=== PATIENT | female | born 1955 | race Caucasian/White ===

== ENCOUNTER 2018-08-25 08:36 | Emergency (ER) | payer OTHER ==
[2018-08-25 09:01] LABS: URINE BLOOD (Dip) POC 1+ (NEGATIVE); URINE GLUCOSE (Dip) POC Negative (NEGATIVE); URINE KETONES (Dip) POC Negative (NEGATIVE); URINE LEUKOCYTE EST (Dip) POC Negative (NEGATIVE); URINE NITRITE (Dip) POC Negative (NEGATIVE); URINE TOTAL PROTEIN POC Negative (NEGATIVE)
[2018-08-25] MEDS: KETOROLAC 30 MG INJ IM (09:01)
[2018-08-25] MEDS: predniSONE 20 MG TAB PO (09:01)
== END 2018-08-25 10:34 | disposition home or self-care (01) ==
LOC: FTE 08:36
DX: M54.42 Lumbago with sciatica, left side (principal)
CPT/HCPCS: 72131; 81003; 96372; 99285-25